=== PATIENT | female | born 1980 | race Caucasian/White ===

== ENCOUNTER 2016-09-15 06:55 | Emergency (ER) | payer OTHER, MEDICAID ==
[~2016-09-15] VITALS: Ht 175.3 cm; Wt 65.3 kg
[2016-09-15 06:58] VITALS: BP 135/76; PULSE 77; RESP 16; TEMP 98.2; O2SAT 98
--- NOTE | 2016-09-15 07:01 | PD ---
HPI Chief Complaint: Eye Problems/Injury Time Seen by Provider: 07:01 Travel History International Travel<30 days: No Contact w/Intl Traveler<30days: No Traveled to known affect area: No History of Present Illness HPI 36-year-old female came to the emergency room with history of left eye irritation, itching and watering for past 3 days. Patient says she's been waking every morning with stickiness and mattering around the eyelid. No history of trauma. No history of known sick contacts. Patient recently recovered from a cold and congestion. Vital signs are stable. She is otherwise a healthy person. Slight photophobia in that eye. No contact lens used. [facility] Past Medical History Narrative Medical List of her past medical, social, surgical and family history is reviewed from the nursing note. Social History Tobacco Use: Yes Allergies-Medications (Allergen,Severity, Reaction): Coded Allergies: No Known Allergies (Unverified , 09/15/16) Comments No known drug allergies. Reported Meds & Prescriptions Reported Meds & Active Scripts Active Vigamox Opth Drops (Moxifloxacin Opth Drops) 0.5 % Soln 1 Drop EACH EYE TID Reported ["Rocera"] [Bcp] Epinephrine Inj (Epinephrine) 0.3 Mg/0.3 Ml Pfpen 0.3 Mg IM ONCE PRN Dicyclomine (Dicyclomine HCl) 10 Mg Cap 10 Mg PO TID Narrative Medication List of her home medications reviewed from the nursing note. Review of Systems Except as stated in HPI: all other systems reviewed are Neg Physical Exam Narrative GENERAL: Awake, alert, mild distress SKIN: Focused skin assessment warm/dry. HEAD: Atraumatic. Normocephalic. EYES: Pupils equal and round. No scleral icterus. Left I conjunctival injection and watering. Cornea, anterior chamber and iris looks grossly normal ENT: No nasal bleeding or discharge. Mucous membranes pink and moist. NECK: Trachea midline. No JVD. CARDIOVASCULAR: Regular rate and rhythm. No murmur appreciated. RESPIRATORY: No accessory muscle use. Clear to auscultation. Breath sounds equal bilaterally. GASTROINTESTINAL: Abdomen soft, non-tender, nondistended. Hepatic and splenic margins not palpable. MUSCULOSKELETAL: No obvious deformities. No clubbing. No cyanosis. No edema. NEUROLOGICAL: Awake and alert. No obvious cranial nerve deficits. Motor grossly within normal limits. Normal speech. PSYCHIATRIC: Appropriate mood and affect; insight and judgment normal. Data Data Last Documented VS Vital Signs Date Time Temp Pulse Resp B/P Pulse Ox O2 Delivery O2 Flow Rate FiO2 09/15/16 06:58 98.2 77 16 135/76 98 [facility] Medical Decision Making Medical Screen Exam Complete: Yes Emergency Medical Condition: Yes Medical Record Reviewed: Yes Differential Diagnosis Viral conjunctivitis, bacterial conjunctivitis Narrative Course 7:21 AM patient will be discharged home with prescription antibiotic eyedrop and instructions. Procedures EKG Prior to Arrival: No Diagnosis Primary Impression: Acute conjunctivitis of left eye Qualified Code: H10.32 - Acute bacterial conjunctivitis of left eye Referrals: Shirlene Reilly MD 1 day Additional Instructions: Please return to the ER if the condition worsens or any other new concerns. Use the eyedrops as directed. Do not rub your eyes. 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 Med/Other Pt SpecificInfo: Prescription(s) given Scripts Moxifloxacin Opth Drops (Vigamox Opth Drops)0.5 % Soln1 Drop EACH EYE TID #1 BOTTLE Ref 0 Prov:Christelle Park MD 09/15/16 Disposition: 01 DISCHARGE HOME Condition: Stable Christelle Park MD September 15, 2016 07:01
[2016-09-15] MEDS ORDERED: EPIN1INJ17 IM (07:16)
[2016-09-15] MEDS ORDERED: [UNRECOGNIZED DRUG - REMARK] (07:16)
[2016-09-15] MEDS ORDERED: BCP (07:16)
[2016-09-15] MEDS ORDERED: DICY10CA12 PO (07:16)
[2016-09-15] MEDS ORDERED: VIGA0.5D EACH EYE (07:24)
== END 2016-09-15 07:30 | disposition home or self-care (01) ==
LOC: PHED 06:55
DX: H10.32 Unspecified acute conjunctivitis, left eye (principal)
CPT/HCPCS: 99283

== ENCOUNTER 2017-06-05 17:23 | Emergency (ER) | payer MEDICAID, OTHER ==
[~2017-06-05] VITALS: Ht 175.3 cm; Wt 64.0 kg
[~2017-06-05 17:23] MED LIST: BCP; DICY10CA12 PO; EPIN1INJ17 IM; VIGA0.5D EACH EYE; [UNRECOGNIZED DRUG - REMARK]
[2017-06-05 17:29] VITALS: BP 141/64; PULSE 72; RESP 16; TEMP 97.5; O2SAT 98
--- NOTE | 2017-06-05 19:31 | PD ---
HPI Chief Complaint: Musculoskeletal Complaint Time Seen by Provider: 19:07 Travel History International Travel<30 days: No Contact w/Intl Traveler<30days: No Traveled to known affect area: No History of Present Illness HPI This is a 36-year-old female here with left forearm pain intermittently 3 weeks. She reports she had a slip and fall approximately 3 weeks ago and has had intermittent pain in the arm since. She reports the pain is worse with movement and slightly relieved with rest. Severity is mild. Denies paresthesia or weakness a 70. No swelling of the extremity. No warmth or erythema of the extremity. PFSH Past Medical History Medical History: Denies Significant Hx Diminished Hearing: No Gastrointestinal Disorders: Yes (GASTROPARESIS) Tetanus Vaccination: < 5 Years Influenza Vaccination: No ?: Not LMP: 05/2017 [facility] Social History Alcohol Use: Yes (OCC) Tobacco Use: No (pt denies) Substance Use: No Allergies-Medications (Allergen,Severity, Reaction): Coded Allergies: Penicillins (Verified Allergy, Unknown, 06/05/17) Reported Meds & Prescriptions Reported Meds & Active Scripts Active Reported Epinephrine Inj (Epinephrine) 0.3 Mg/0.3 Ml Pfpen 0.3 Mg IM ONCE PRN Review of Systems Except as stated in HPI: all other systems reviewed are Neg Physical Exam Narrative GENERAL: Alert and well-appearing 36-year-old female SKIN: Warm and dry. No areas of erythema or open wounds HEAD: Normocephalic. EYES: No injection or drainage. NECK: Supple CARDIOVASCULAR: Regular rate and rhythm RESPIRATORY: Breath sounds equal bilaterally. No accessory muscle use. GASTROINTESTINAL: Abdomen soft, non-tender, nondistended. MUSCULOSKELETAL: No cyanosis, or edema. Right upper extremity: Patient points to the mid forearm as site of pain. The area is nontender. No swelling. No bony tenderness. No deformity. Patient is able to flex and extend the wrist and elbow without difficulty. 2+ brachial, radial pulses. Normal sensation. Brisk cap refill Data Data Last Documented VS Vital Signs Date Time Temp Pulse Resp B/P (MAP) Pulse Ox O2 Delivery O2 Flow Rate FiO2 06/05/17 17:29 97.5 72 16 141/64 (89) 98 [facility] Medical Decision Making Medical Screen Exam Complete: Yes Emergency Medical Condition: Yes Differential Diagnosis Contusion, fracture, sprain/strain Narrative Course 36-year-old female here with intermittent right forearm pain. She is requesting a work note for light duty. The extremity is nontender. She is freely moving the arm. I do not suspect fracture. There is no evidence of infection. Do not suspect DVT. She was instructed to take [id number] Tylenol ibuprofen. Diagnosis Primary Impression: Right arm pain Referrals: Primary Care Physician Additional Instructions: Tylenol or ibuprofen as needed for pain Sling for comfort. Follow-up with the [facility] Disposition: 01 DISCHARGE HOME Condition: Stable Angela Moy Jun 05, 2017 19:31
== END 2017-06-05 19:42 | disposition home or self-care (01) ==
LOC: PHED 17:23 → PHEFT 19:42
DX: M79.601 Pain in right arm (principal); W01.0XXA Fall on same level from slipping, tripping and stumbling without subsequent striking against object, initial encounter
CPT/HCPCS: 99282

== ENCOUNTER 2017-08-28 16:17 | Emergency (ER) | payer OTHER ==
[~2017-08-28 16:17] MED LIST changes: -BCP; -DICY10CA12 PO; -VIGA0.5D EACH EYE; -[UNRECOGNIZED DRUG - REMARK]
[2017-08-28 16:22] VITALS: BP 131/75; PULSE 88; RESP 20; TEMP 98
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
[2017-08-28] MEDS ORDERED: ACETAMINOPHEN 325 MG TAB PO ONE (18:00)
== END 2017-08-28 18:13 | disposition home or self-care (01) ==
LOC: PHED 16:17 → PHEFT 18:13
DX: S60.212A Contusion of left wrist, initial encounter (principal); W22.09XA Striking against other stationary object, initial encounter; Y93.55 Activity, bike riding
CPT/HCPCS: 73110; 99283